=== PATIENT | male | born 1935 | race Caucasian/White ===

== ENCOUNTER 2018-06-04 08:23 | Day surgery (SDC) | payer OTHER ==
[2018-06-03 18:05] VITALS: BMI 24.9
[2018-06-04] MEDS ORDERED: LIDOCAINE HCL 1%, 10 MG/ML (20ML VIAL) ONE (09:39)
[2018-06-04] MEDS ORDERED: PROPOFOL 20 ML ONE (09:58)
[2018-06-04] MEDS ORDERED: MIDAZOLAM HCL 2 MG/2 ML SINGLE DOSE VIAL ONE (09:59)
[2018-06-04] MEDS ORDERED: ceFAZolin SODIUM 1 GM VIAL IVPB ONE (10:13)
[2018-06-04] MEDS ORDERED: LIDOCAINE HCL 1%, 10 MG/ML (20ML VIAL) INF ONE (10:36)
[2018-06-04] MEDS ORDERED: LACTATED RINGERS SOLUTION 1,000 ML IV SCH (11:00)
--- NOTE | 2018-06-04 11:28 | OP ---
DATE OF OPERATION: 06/04/2018 PREOPERATIVE DIAGNOSIS: Urge incontinence. POSTOPERATIVE DIAGNOSIS: Urge incontinence. PROCEDURE: Replacement of InterStim battery. HISTORY: This is an 83-year-old gentleman who had an InterStim placement approximately 7 years ago who for the past approximately 2 years noticed it had not been working. After interrogating the unit as an outpatient, it was determined that the battery had no charge remaining. He wanted to undergo battery replacement with interrogation of the lead. All risks and benefits were discussed, and preoperative medical clearance was obtained. The patient stopped Plavix approximately 3 days prior. BRIEF OPERATIVE NOTE: The patient was brought to the operating room and placed in supine position. Once intravenous antibiotics were given, the patient was then placed in the prone position. Sedation was administered. At this time, the patient was prepped and draped in standard sterile fashion. A time-out was performed. At this time, an approximately 3-cm incision was made over the battery excising the previous scar. The battery was then exposed using blunt and sharp dissection. The battery was then brought onto the operative field and removed from the lead. The lead was interrogated. Three out of 4 leads showed excellent response. A 4th lead showed response at a higher stimulation point. Using C-arm the lead was determined to be in good position radiographically. At this time, the new battery was placed and was initialized and was found to be in working order. It was reconnected and placed back into the pocket. The pocket was closed in 2 layers using a 3-0 running Vicryl and then a 3-0 Vicryl was used to close the skin in running fashion subcuticularly. A dry, sterile occlusive dressing was then applied. The patient was brought to the recovery room in stable and satisfactory condition. Raven [id number]
--- NOTE | 2018-06-04 12:15 | EKG ---
Test Reason : Blood Pressure : / mmHG Vent. Rate : 072 BPM Atrial Rate : 072 BPM P-R Int : 148 ms QRS Dur : 124 ms QT Int : 410 ms P-R-T Axes : 028 -70 099 degrees QTc Int : 448 ms NORMAL SINUS RHYTHM LEFT AXIS DEVIATION NON-SPECIFIC INTRA-VENTRICULAR CONDUCTION DELAY ABNORMAL QRS-T ANGLE, CONSIDER PRIMARY T WAVE ABNORMALITY ABNORMAL ECG NO PREVIOUS ECGS AVAILABLE Confirmed by MD MATILDA, MARLENY ([id number]) on 06/04/2018 12:14:45 PM Referred By: VIVIAN MACK Confirmed By:MARLENY GREY MD
[2018-06-04 12:51] VITALS: TEMP 97.8
[2018-06-04 14:28] VITALS: BP 138/80; PULSE 70
--- NOTE | 2018-06-05 17:16 | PATH ---
Surgical Pathology Report Patient Name: JUANITA GREER Med. Rec. #: [id number] /Age/Gender: 1935 (Age: 83) / M Account: [id number] Location: [facility] Taken: 06/04/2018 Received: 06/04/2018 Reported: 06/05/2018 Physicians: Saul Rodriguez M.D. Specimen(s) Received INTERSTIM BATTERY Clinical History Urge incontinence Final Diagnosis INTERSTIM BATTERY, REMOVAL: [employer] (BATTERY). MACROSCOPIC DIAGNOSIS. Electronically Signed Natalia Cabrera M.D. Gross Description Received fresh labeled "interStim battery," is a 4.8 x 4.2 x 0.8 cm meraz metallic device, consistent with a battery. The specimen has the following inscription: "[employer] InterStim II SN: [id number]." No soft tissue is present. No sections are submitted, gross only. DL/06/04/2018 saudi/06/04/2018
== END 2018-06-04 14:15 | disposition home or self-care (01) ==
LOC: JASU-SURG 08:23
PROVIDERS: ATTEND Urology
PROC: 0JH70MZ Insertion of Stimulator Generator into Back Subcutaneous Tissue and Fascia, Open Approach (ICD-10-PCS; 2018-06-04)
PROC: 0JPT0MZ Removal of Stimulator Generator from Trunk Subcutaneous Tissue and Fascia, Open Approach (ICD-10-PCS; principal; 2018-06-04 09:00)
DX: T85.193A Other mechanical complication of implanted electronic neurostimulator, generator, initial encounter (principal); N39.41 Urge incontinence
CPT/HCPCS: 64590; C1767; 76000-TC-FY; 82962; 88300-TC; 93005; 93010; 94760